=== PATIENT | female | born 1945 | race Caucasian/White ===

== ENCOUNTER 2017-10-09 14:03 | Emergency (ER) | payer MEDICARE, OTHER ==
[2017-10-09] MEDS: ALBUTEROL 0.083% (NEB) 2.5 MG/3 ML AMP NEB (16:53)
[2017-10-09] MEDS: IPRATROPIUM (NEB) 0.5 MG/2.5 ML AMP NEB (16:53)
[2017-10-09] MEDS: predniSONE 20 MG TAB PO (16:55)
== END 2017-10-09 18:26 | disposition home or self-care (01) ==
LOC: FTE 14:03
DX: J06.9 Acute upper respiratory infection, unspecified (principal); I10 Essential (primary) hypertension; Z79.82 Long term (current) use of aspirin
CPT/HCPCS: 71010; 94664; 99284-25

== ENCOUNTER 2018-02-03 13:36 | Emergency (ER) | payer MEDICARE, OTHER ==
[2018-02-03 15:06] LABS: ADD UMIC YES; UR ASCORBIC ACID NEGATIVE (NEGATIVE); UR BACTERIA FEW /HPF (NONE SEEN); UR BILIRUBIN (Dip) NEGATIVE (NEGATIVE); UR BLOOD (Dip) 1+ mg/dL (NEGATIVE); UR CLARITY CLEAR (CLEAR); UR COLOR YELLOW (YELLOW); UR GLUCOSE (Dip) NEGATIVE (NEGATIVE); UR KETONES (Dip) NEGATIVE (NEGATIVE); UR LEUKOCYTE ESTERASE (Dip) NEGATIVE Leu/ul (NEGATIVE); UR NITRITE (Dip) NEGATIVE (NEGATIVE); UR RBC 2 /HPF (0-5); UR SPECIFIC GRAVITY (Dip) 1.012 (1.003-1.030); UR TOTAL PROTEIN (Dip) NEGATIVE (NEGATIVE); UR UROBILINOGEN (Dip) NEGATIVE (NEGATIVE); UR WBC 1 /HPF (0-5)
== END 2018-02-03 16:19 | disposition home or self-care (01) ==
LOC: FTE 13:36
DX: M79.671 Pain in right foot (principal); M79.672 Pain in left foot; R35.0 Frequency of micturition; I10 Essential (primary) hypertension; Z79.82 Long term (current) use of aspirin
CPT/HCPCS: 81001; 99283